=== PATIENT | male | born 1950 | race Caucasian/White ===

== ENCOUNTER → 2016-09-30 | Outpatient (CLI) | payer MEDICARE ==
[2016-09-30 10:31] LABS: INR 0.98
[2016-09-30 10:50] LABS: ALBUMIN 3.6 GM/DL (3.2-5.2); ALBUMIN/GLOBULIN RATIO 1.06 (1.00-1.93); ALKALINE PHOSPHATASE 75 U/L (45-117); ALT/SGPT 99 U/L (12-78); AST/SGOT 61 U/L (15-37); BILIRUBIN,DIRECT 0.2 MG/DL (0.0-0.2); BILIRUBIN,TOTAL 0.7 MG/DL (0.2-1.0); PERCENT SATURATION 50.9 % (19.7-37.4); TOTAL IRON BINDING CAPACITY 289 UG/DL (250-450)
--- NOTE | 2016-09-30 11:07 | REP ---
Right upper quadrant sonography: History: Cirrhosis. Elevated liver function studies. Findings: Scanning through the right upper quadrant of the abdomen demonstrates an echo dense poorly insonated liver consistent with diffuse fatty infiltration. There is no evidence of ascites or focal liver mass lesion. Normal sized gallbladder without evidence of stone or polyp seen. Common bile duct is normal measuring 0.4 cm in greatest diameter. The pancreas is obscured by abdominal gas. No right renal abnormality is seen. Right kidney measures 12.8 x 7.7 x 5.9 cm. Normal caliber aorta is seen. Impression: Evidence of fatty infiltration of the liver. Otherwise negative. Signed by Nguyễn Alvarenga MD 09/30/2016 02:54 P
== END ==
LOC: M RAD 09:14
PROVIDERS: ATTEND Internal Medicine Gastroenterology
DX: R74.8 Abnormal levels of other serum enzymes (principal); F10.10 Alcohol abuse, uncomplicated

== ENCOUNTER → 2017-07-21 | Outpatient (CLI) | payer MEDICARE ==
[2017-07-21 09:11] LABS: INR 1.07
[2017-07-21 09:46] LABS: ALBUMIN 3.6 GM/DL (3.2-5.2); ALBUMIN/GLOBULIN RATIO 1.06 (1.00-1.93); ALKALINE PHOSPHATASE 64 U/L (45-117); ALT/SGPT 86 U/L (12-78); ANION GAP 6 MEQ/L (8-16); AST/SGOT 44 U/L (7-37); BILIRUBIN,DIRECT 0.2 MG/DL (0.0-0.2); BILIRUBIN,TOTAL 0.8 MG/DL (0.2-1.0); BLOOD UREA NITROGEN 11 MG/DL (7-18); CALCIUM LEVEL 9.2 MG/DL (8.8-10.2); CARBON DIOXIDE LEVEL 28 MEQ/L (21-32); CHLORIDE LEVEL 106 MEQ/L (98-107); CREATININE FOR GFR 0.76 MG/DL (0.70-1.30); GLOMERULAR FILTRATION RATE > 60.0 (>49); GLUCOSE, FASTING 125 MG/DL (80-110); PERCENT SATURATION 63.3 % (19.7-50.0); POTASSIUM SERUM 4.2 MEQ/L (3.5-5.1); SODIUM LEVEL 140 MEQ/L (136-145); TOTAL IRON BINDING CAPACITY 281 UG/DL (250-450)
--- NOTE | 2017-07-21 10:38 | REP ---
Clinical: [place] liver disease. Technique: Real time sanchez scale ultrasound examination using curved array transducer. Comparison: 09/30/2016. Findings: Diffuse fatty infiltration the liver is appreciated without obvious focal hepatic lesion identified. The pancreas is incompletely evaluated due to interposed bowel gas. The gallbladder is normal and without gallstones, wall thickening, or pericholecystic fluid. No biliary ductal dilatation is appreciated and the common bile duct measures 3.7 mm diameter. Right kidney is normal in reniform shape without hydronephrosis and measures 13.5 x 6.0 x 5.3 cm. No ascites. Impression: Hepatic steatosis without focal hepatic lesion identified. Signed by Shiraz Renner MD 07/21/2017 10:29 A
== END ==
LOC: M LAB 08:17
PROVIDERS: ATTEND Internal Medicine Gastroenterology
DX: K70.9 Alcoholic liver disease, unspecified (principal); R74.8 Abnormal levels of other serum enzymes

== ENCOUNTER → 2018-01-04 | Outpatient (REF) | payer MEDICARE ==
[2018-01-04 19:54] LABS: FERRITIN 949 NG/ML (26-388); IRON (FE) 158 UG/DL (65-175); TOTAL IRON BINDING CAPACITY 310 UG/DL (250-450)
[2018-01-04 20:49] LABS: ERYTHROCYTE SEDIMENTATION RATE 4 mm/hr (0-20)
== END ==
LOC: M LAB REF 18:43
DX: D72.829 Elevated white blood cell count, unspecified (principal); E83.19 Other disorders of iron metabolism
CPT/HCPCS: 83550

== ENCOUNTER → 2018-01-16 | Outpatient (REF) | payer MEDICARE ==
[2018-01-16 15:08] LABS: HIV 1&2 SCREEN CENTAUR NEGATIVE (NEGATIVE)
== END ==
LOC: M LAB REF 13:57
DX: Z00.00 Encounter for general adult medical examination without abnormal findings (principal)
CPT/HCPCS: 87389

== ENCOUNTER → 2018-02-15 | Outpatient (REF) | payer MEDICARE ==
[2018-02-15 20:11] LABS: FERRITIN 609 NG/ML (26-388)
== END ==
LOC: M LAB REF 17:44
DX: E83.119 Hemochromatosis, unspecified (principal)
CPT/HCPCS: 82728

== ENCOUNTER → 2018-03-29 | Outpatient (REF) | payer MEDICARE ==
[2018-03-29 18:22] LABS: FERRITIN 240 NG/ML (26-388); IRON (FE) 133 UG/DL (65-175); PERCENT SATURATION 42.1 % (19.7-50.0); TOTAL IRON BINDING CAPACITY 316 UG/DL (250-450)
== END ==
LOC: M LAB REF 17:52
DX: E83.119 Hemochromatosis, unspecified (principal)
CPT/HCPCS: 83550

== ENCOUNTER → 2018-11-14 | Outpatient (CLI) | payer MEDICARE ==
[~2018-11-14] MED LIST: AMLO10TA5 PO; ASPI1TAB PO; ATEN100T PO; COLC1TAB13 PO
--- NOTE | 2018-11-15 08:38 | REP ---
HEPATIC ULTRASOUND: 11/14/2018 Clinical history: Alcoholic liver disease. Comparison: 07/21/2017. Findings: Liver is homogeneous through most of its parenchyma with increased echogenicity consistent with fatty replacement. There is some focal fat sparing near the gallbladder fossa, a normal finding. There is no intrahepatic biliary dilatation, discrete mass nor ascites. Gallbladder shows normal wall thickness of less than 2 mm and no stone, sludge or pericholecystic fluid. No mass. The common duct is 3.7 mm without a common duct stone. Liver contour is smooth. Pancreas is limited in evaluation due to gas shadowing. Portions seen were unremarkable. The right kidney measures 13.1 x 5.4 x 6 mm and without stone or hydronephrosis. Impression: 1. Diffuse fatty infiltration of the liver without focal hepatic mass, biliary dilatation or ascites. Liver contour is smooth. 2. Gallbladder without stones or other abnormality. No sonographic Mercedes sign. 3. Common duct and right kidney unremarkable. Electronically Signed by Matt Ramos MD 11/15/2018 09:44 P
== END ==
LOC: M RAD 08:49
PROVIDERS: ATTEND Internal Medicine Gastroenterology
DX: K76.0 Fatty (change of) liver, not elsewhere classified (principal); Z86.010 Personal history of colon polyps

== ENCOUNTER 2018-12-11 09:16 | Day surgery (SDC) | payer MEDICARE ==
[~2018-12-11] VITALS: Ht 185.4 cm; Wt 111.1 kg
[~2018-12-11 09:16] MED LIST changes: -ASPI1TAB PO; +ASPI81TA26 PO; +NS 1,000 ML IV ONE
[2018-12-11] MEDS ORDERED: LIDOCAINE 2% INJ 100 MG/5 ML SDV (FOR ANES.) As Ordered ONE (12:08)
[2018-12-11] MEDS ORDERED: PROPOFOL 200 MG/20 ML VIAL As Ordered ONE ×2 (12:08→12:12)
--- NOTE | 2018-12-11 12:30 | ROOR ---
Patient Name: Mesfin Cunningham Procedure Date: 12/11/2018 11:58 AM Date of : 1950 Age: 68 Room: [facility] Gender: Male Note Status: Finalized Procedure: Colonoscopy Indications: High risk colon cancer surveillance: Personal history of colonic polyps, Family history of colonic polyps in a first-degree relative Providers: Shmaar BURGOS MD Referring MD: Caitie Cunningham DO Requesting Provider: Medicines: Monitored Anesthesia Care Complications: No immediate complications. Procedure: Pre-Anesthesia Assessment: - The heart rate, respiratory rate, oxygen saturations, blood pressure, adequacy of pulmonary ventilation, and response to care were monitored throughout the procedure. The Colonoscope was introduced through the anus and advanced to the cecum, identified by appendiceal orifice and ileocecal valve. The colonoscopy was performed without difficulty. The patient tolerated the procedure well. The quality of the bowel preparation was good. Findings: The perianal and digital rectal examinations were normal. Two sessile polyps were found in the sigmoid colon. The polyps were 4 to 5 mm in size. These polyps were removed with a cold snare. Resection and retrieval were complete. A tattoo was seen in the descending colon. A post-polypectomy scar was found at the tattoo site. There was no evidence of residual polyp tissue. A tattoo was seen at the splenic flexure. A post-polypectomy scar was found at the tattoo site. There was no evidence of residual polyp tissue. Mild sigmoid diverticulosis and small internal hemorrhoids. The exam was otherwise normal throughout the examined colon. Impression: - Two 4 to 5 mm polyps in the sigmoid colon, removed with a cold snare. Resected and retrieved. - Two tattoos were seen in descending colon and splenic flexure. There was no evidence of residual polyp tissue. - Mild sigmoid diverticulosis and small internal hemorrhoids. - The colon was otherwise normal. Recommendation: - Repeat colonoscopy in 5 years for surveillance. Shamar Burgos MD Shamar BURGOS MD 12/11/2018 12:29:52 PM Electronically signed by Shamar BURGOS MD Number of Addenda: 0 Note Initiated On: 12/11/2018 11:58 AM Estimated Blood Loss: Estimated blood loss: none.
[2018-12-11 12:51] VITALS: BP 158/79
== END 2018-12-11 12:53 | disposition home or self-care (01) ==
LOC: M OPP 09:16
PROVIDERS: ATTEND Internal Medicine Gastroenterology
DX: D12.5 Benign neoplasm of sigmoid colon (principal); K57.30 Diverticulosis of large intestine without perforation or abscess without bleeding; K64.8 Other hemorrhoids; Z86.010 Personal history of colon polyps; Z83.71 Family history of colonic polyps

== ENCOUNTER → 2020-09-23 | Outpatient (CLI) | payer MEDICARE ==
[~2020-09-23] MED LIST changes: -AMLO10TA5 PO; +AMLO1TAB25 PO; +COLC0.6T47 PO; -COLC1TAB13 PO; -NS 1,000 ML IV ONE
--- NOTE | 2020-09-23 08:06 | REP ---
INDICATION: PAIN IN RIGHT UPPER ABD COMPARISON: 11/14/2018 TECHNIQUE: Real time sanchez scale ultrasound examination using curved array transducer. FINDINGS: Liver is enlarged and echogenic measuring 19.9 cm in craniocaudal length. No focal hepatic lesions are identified. Pancreas is incompletely evaluated due to interposed bowel gas but visualized portions appear normal. The gallbladder is normal and without gallstones, wall thickening, or pericholecystic fluid. No biliary ductal dilatation is appreciated and the common bile duct measures 5.0 mm diameter. Right kidney is normal in reniform shape without hydronephrosis and measures 12.9 x 6.7 x 6.8 cm. No ascites in the visualized right upper quadrant. IMPRESSION: Hepatomegaly and hepatosteatosis. Otherwise normal right upper quadrant ultrasound <Electronically signed by Shiraz Renner > 09/23/20 [id number]
== END ==
LOC: M RAD 06:57
PROVIDERS: ATTEND Specialist
DX: R10.11 Right upper quadrant pain (principal)

== ENCOUNTER 2021-01-11 13:38 | Emergency (ER) | payer MEDICARE ==
[~2021-01-11] VITALS: Ht 185.4 cm; Wt 111.2 kg
[2021-01-11 15:00] LABS: BASO # 0.1 10^3/uL (0.0-0.2); BASO % 0.8 % (0.0-1.0); EOS # 0.2 10^3/uL (0.0-0.5); EOS % 2.3 % (0.0-3.0); HEMATOCRIT 46.8 % (42.0-52.0); HEMOGLOBIN 15.1 g/dl (13.5-17.5); LYMPH # 2.4 10^3/uL (1.5-5.0); LYMPH % 25.2 % (24.0-44.0); MEAN CORPUSCULAR HGB CONC 32.3 g/dl (32.0-36.5); MONO # 1.1 10^3/uL (0.0-0.8); MONO % 11.2 % (2.0-8.0); NEUTROPHILS # 5.8 10^3/uL (1.5-8.5); NEUTROPHILS % 60.2 % (36.0-66.0); PLATELET COUNT, AUTOMATED 239 10^3/uL (150-450); WHITE BLOOD COUNT 9.7 10^3/uL (4.0-10.0)
[2021-01-11] MEDS ORDERED: ISOVUE-370 76% 100ML VIAL As Ordered ONE (15:12)
[2021-01-11 15:21] LABS: ERYTHROCYTE SEDIMENTATION RATE 6 mm/hr (0-20)
--- NOTE | 2021-01-11 17:02 | REPVR ---
PROCEDURE INFORMATION: Exam: CT Maxillofacial With Contrast Exam date and time: 01/11/2021 3:18 PM Age: 70 years old Clinical indication: Other: Swelling right upper jaw/right face TECHNIQUE: Imaging protocol: Computed tomography images of the face with intravenous contrast. Radiation optimization: All CT scans at this facility use at least one of these dose optimization techniques: automated exposure control; mA and/or kV adjustment per patient size (includes targeted exams where dose is matched to clinical indication); or iterative reconstruction. Contrast material: ISOVUE 370; Contrast volume: 75 ml; Contrast route: INTRAVENOUS (IV); COMPARISON: No relevant prior studies available. FINDINGS: Orbital cavity: Globes are unremarkable. No muscle entrapment. No intraorbital hematoma or intraorbital emphysema. Bones/joints: There is hardware for fracture repair at the anterior aspect of the right orbital floor. The screws anchoring the reconstruction plate appear seated within bone. Irregularity of the right orbital floor from prior fracture posterior to the hardware with trapped or fragment and associated mucosal thickening. Additional reconstruction plate extending from the right zygomatic arch along the anterolateral to inferior wall of the right maxillary sinus down to the maxillary alveolar ridge, with the more inferior medial screw not clearly seated within bone as on series 202, image 24. There is a small amount of lucency in the underlying bone which may represent ununited fracture, or lucency from loosening and infection. Gap in the anterior wall which is not bridged by hardware could be from the original fracture, less likely bone destruction from infection. Small calcification in the soft tissues overlying the right anterior inferior orbit is likely a prior fracture fragment. There is nasal septal deviation to the left. Question prior nasal bone fractures. There is degenerative facet disease in the upper cervical spine. Paranasal sinuses: There is mucosal thickening in the right maxillary sinus. This has varying densities, with increased density at the gap in the anterior wall. Small amount of mucosal thickening in the inferior left maxillary sinus. There is also mucosal thickening in a few ethmoid air cells, left more than right, and in the left frontal sinus. Mastoid air cells: Mastoid air cells are clear. Soft tissues: Soft tissue swelling is seen in the right cheek tracking from the infraorbital region inferiorly. This could be bland edema or infection, and there may be a component of scarring. Right preseptal periorbital soft tissue swelling. Lymph nodes: There are multiple small cervical lymph nodes. Vasculature: There is atherosclerotic calcification in the internal carotid arteries bilaterally Dental: There are multiple missing teeth, particularly in the maxilla where only a few small fragments are prior. Dental caries, particularly in the remaining left lower molar teeth. IMPRESSION: 1. Reconstruction hardware in the anterior aspect of the right orbital floor in along the margin of the right maxillary sinus. One of the inferior medial screws extending towards the alveolar ridge of the maxilla is not anchored and there is some lucency in the underlying bone, raising the possibility of loosening or infection. 2. Gap in the anterior wall of the right maxillary sinus most likely from the prior fracture, although bone loss from infection is not excluded. 3. Mucosal thickening in the right maxillary sinus along the orbital floor where there is irregularity from prior fracture, and at the anterior aspect where there is mixed density raising the possibility of some inspissated mucus or granulation tissue. 4. Right preseptal periorbital soft tissue swelling and soft tissue swelling in the right cheek. Electronically signed by: Priyanka Castillo On 01/11/2021 17:01:42 PM
[2021-01-11 18:12] VITALS: BP 185/84
--- NOTE | 2021-01-12 14:26 | ED PDOC ---
Post-Departure Follow-Up ct max/fac faxed to dr ardon for fu Fab Singh MD January 12, 2021 14:26
== END 2021-01-11 18:18 | disposition home or self-care (01) ==
LOC: M ED 13:38
DX: R22.0 Localized swelling, mass and lump, head (principal); T84.298A Other mechanical complication of internal fixation device of other bones, initial encounter; Y92.9 Unspecified place or not applicable; Y93.9 Activity, unspecified; I10 Essential (primary) hypertension; Z79.899 Other long term (current) drug therapy
CPT/HCPCS: 36415; 70487; 80047; 85025; 85652; 86140; 99284; Q9967

== ENCOUNTER → 2022-11-04 | Outpatient (CLI) | payer MEDICARE ==
[~2022-11-04] MED LIST changes: +AMLO-356 PO; +AMLO5CAP53
== END ==
LOC: M LABSMTC 09:33
PROVIDERS: ATTEND Anesthesiology
DX: Z01.812 Encounter for preprocedural laboratory examination (principal)

== ENCOUNTER 2022-11-09 07:16 | Day surgery (SDC) | payer MEDICARE ==
[~2022-11-09] VITALS: Ht 182.9 cm; Wt 111.6 kg
[2022-11-09] MEDS ORDERED: LR 1,000 ML IV SCH (08:00)
[2022-11-09] MEDS ORDERED: ceFAZolin SOD 2 GM in IV 1 EA IV ONE (08:25)
[2022-11-09] MEDS ORDERED: propofoL 200 MG/20 ML VIAL As Ordered ONE (08:32)
[2022-11-09] MEDS ORDERED: LIDOCAINE 2% 100MG/5ML SDV (FOR ANES.) As Ordered ONE (08:32)
[2022-11-09] MEDS ORDERED: KETOROLAC 60MG 2ML VIAL As Ordered ONE (08:32)
[2022-11-09] MEDS ORDERED: MIDAZOLAM INJ 2MG/2ML VIAL As Ordered ONE (08:33)
[2022-11-09] MEDS ORDERED: fentaNYL 100 MCG/2 ML INJECTION As Ordered ONE (08:33)
[2022-11-09] MEDS ORDERED: BUPIVACAINE/EPIN 0.25% 30ML VIAL As Ordered ONE (08:57)
[2022-11-09 10:32] VITALS: BP 173/83
== END 2022-11-09 10:35 | disposition home or self-care (01) ==
LOC: M SDC 07:16
PROVIDERS: ATTEND Surgery
DX: D17.1 Benign lipomatous neoplasm of skin and subcutaneous tissue of trunk (principal); I10 Essential (primary) hypertension; M10.9 Gout, unspecified; Z79.899 Other long term (current) drug therapy
CPT/HCPCS: 11406; 88304; J0690; J2250; J3010

== ENCOUNTER 2024-05-04 07:38 | Day surgery (SDC) | payer MEDICARE ==
[~2024-05-04] VITALS: Ht 182.9 cm; Wt 110.1 kg
[~2024-05-04 07:38] MED LIST changes: +GABA-1171 PO; +MELO15TA28 PO; +MELO7.5T35 PO
[2024-05-04] MEDS: NS 1,000 ML IV ONE (08:15)
[2024-05-04] MEDS ORDERED: LIDOCAINE 2% 100MG/5ML SDV (FOR ANES.) As Ordered ONE (09:32)
[2024-05-04] MEDS ORDERED: propofoL 200 MG/20 ML VIAL As Ordered ONE (09:32)
[2024-05-04 10:30] VITALS: BP 135/66; TEMP 97.2; O2SAT 96
== END 2024-05-04 10:41 | disposition home or self-care (01) ==
LOC: M OPP 07:38
PROVIDERS: ATTEND Internal Medicine Gastroenterology
DX: Z86.010 Personal history of colon polyps (principal); Z83.719 Family history of colon polyps, unspecified; K64.8 Other hemorrhoids; D12.4 Benign neoplasm of descending colon; Z79.899 Other long term (current) drug therapy